=== PATIENT | male | born 1960 | race Caucasian/White ===

== ENCOUNTER 2021-06-06 16:08 | Emergency (ER) | payer OTHER ==
[2021-06-06] MEDS ORDERED: Sodium Chloride 0.9% 10 ML Syringe FLUSH PRN (16:26)
--- NOTE | 2021-06-06 17:27 | EDM.PDOC ---
ED HPI GENERAL MEDICAL PROBLEM - General Chief Complaint: Cardiovascular Problem Stated Complaint: DIZZY Time Seen by Provider: 06/06/21 16:16 Source of Information: Reports: Patient History Limitations: Reports: No Limitations, Other (ED vital signs reveal a temp of 97.7, pulse of 97, respiratory rate of 14, blood pressure 175/92, pulse ox 98% on room air) - History of Present Illness INITIAL COMMENTS - FREE TEXT/NARRATIVE: 61-year-old male presents the emergency department today with complaints of 4- day history of dizziness worse with position changes from lying to sitting to sitting to standing. He also does note some nausea associated when standing up. States that when he climbed into bed last night to lay down he also noted the dizziness. However this resolved after laying there for short time. He denies any recent fever, chills, vomiting, diarrhea, cough, shortness of breath, headache or ear pain. He denies any chest pain or shortness of breath associated with the dizziness. Denies any headache or ringing in his ears. States he has decreased appetite and has not eaten yet today. He states that his blood pressure has been slightly elevated over the past couple of days. He did check it at home today and it was greater than 170 systolic. States he does have a past history of smoking however quit several years ago. He states he does have a history of hypertension and does take medication for this. Recently had a checkup with his primary care provider the end of May and there were no issues at that time. His primary care provider is . - Related Data Allergies Allergy/AdvReac Type Severity Reaction Status Date / Time No Known Allergies Allergy Verified 06/06/21 16:23 Home Meds: Home Meds Meclizine [Antivert] 25 mg PO TID #15 tab 06/06/21 [Rx] Olmesartan/Hydrochlorothiazide [Olmesartan-Hctz 20-12.5 mg Tab] 1 tab PO DAILY 06/06/21 [History] Past Medical History HEENT History: Reports: Impaired Vision Cardiovascular History: Reports: High Cholesterol, Hypertension Endocrine/Metabolic History: Reports: Hypothyroidism - Infectious Disease History Infectious Disease History: Reports: Novel Coronavirus Other Infectious Disease History: april 2020 Social & Family History - Family History Family Medical History: No Pertinent Family History - Tobacco Use Tobacco Use Status *Q: Never Tobacco User - Caffeine Use Caffeine Use: Reports: Coffee, Energy Drinks Caffeine Use Comment: occasional energy drink - Recreational Drug Use Recreational Drug Use: No ED ROS GENERAL - Review of Systems Review Of Systems: Comprehensive ROS is negative, except as noted in HPI. ED EXAM, GENERAL - Physical Exam Exam: See Below Exam Limited By: No Limitations General Appearance: Alert, WD/WN, No Apparent Distress Eye Exam: Bilateral Eye: EOMI, PERRL Ears: Normal External Exam, Normal Canal, Hearing Grossly Normal. No: Normal TMs (Right tympanic membrane is erythematous; left tympanic membrane has fluid noted) Ear Exam: Bilateral Ear: Auricle Normal, Canal Normal, Other (See above) Nose: Normal Inspection, Normal Mucosa Throat/Mouth: Normal Inspection, Normal Lips, Normal Voice, No Airway Compromise Head: Atraumatic, Normocephalic Neck: Normal Inspection, Supple Respiratory/Chest: No Respiratory Distress, Lungs Clear, Normal Breath Sounds, No Accessory Muscle Use, Chest Non-Tender Cardiovascular: Normal Peripheral Pulses, Regular Rate, Rhythm, No Edema, No Murmur Peripheral Pulses: 2+: Radial (L), Radial (R) GI/Abdominal: Normal Bowel Sounds, Soft, Non-Tender, No Distention (Male) Exam: Deferred Rectal (Males) Exam: Deferred Back Exam: Normal Inspection, Full Range of Motion Extremities: Normal Inspection, Normal Range of Motion, Non-Tender, No Pedal Edema, Normal Capillary Refill Neurological: Alert, Oriented, CN II-XII Intact, Normal Cognition, Normal Gait Psychiatric: Normal Affect, Normal Mood Skin Exam: Warm, Dry, Intact, Normal Color, No Rash Lymphatic: No Adenopathy #1 Interpretation EKG Date: 06/06/21 Time: 17:32 Rhythm: NSR Rate (Beats/Min): 85 [place]: Normal P-Wave: Present QRS: Normal ST-T: Normal QT: Normal EKG Interpretation Comments: Per Dr. Dyer interpretation: Sinus rhythm at 85 bpm; nonspecific intraventricular conduction delay; probable anteroseptal infarct, old; borderline T abnormalities, inferior leads; Q's anterior Course - Vital Signs Text/Narrative:: Stated above, patient presents with 4-day history of dizziness primarily noted with position changes. Physical exam reveals an alert non-ill appearing male laying in bed. Heart and lungs are unremarkable. Abdomen is soft and nontender. Neuro exam is completely unremarkable. Patient does have erythema noted to the right tympanic membrane however I do not appreciate any edema. He does have fluid noted in the left tympanic membrane. When laying flat, patient states there is no change in his dizziness. He denies any changes to his dizziness when turning his head to the right or the left. I do not appreciate any nystagmus. Patient notes increased dizziness when going from lying to sitting. We will have nursing staff perform orthostatic vital signs. Also obtain a CT scan of the head rule out stroke. We will get lab studies to include a CBC, CMP, magnesium, C-reactive protein, D-dimer, and troponin level. We will also obtain testing for Covid and influenza. Last Recorded V/S: Last Vital Signs Temp 97.7 F 06/06/21 16:17 Pulse 97 06/06/21 16:17 Resp 14 06/06/21 16:17 BP 175/92 H 06/06/21 16:17 Pulse Ox 98 06/06/21 16:17 Orthostatic Blood Pressure [ 152/90 Standing] Orthostatic Blood Pressure [ 142/88 Supine] - Orders/Labs/Meds Orders: Active Orders 24 hr Category Date Time Status Orthostatic Vital Signs [RC] ASDIRECTED Care 06/06/21 16:53 Active Chest 1V Frontal [CR] Stat Exams 06/06/21 16:26 Taken Head wo Cont [CT] Stat Exams 06/06/21 17:13 Taken Sodium Chloride 0.9% [Saline Flush] Med 06/06/21 16:26 Active 10 ml FLUSH ASDIRECTED PRN Saline Lock Insert [OM.PC] Stat Oth 06/06/21 16:26 Ordered Medication Orders Sodium Chloride (Sodium Chloride 0.9% 10 Ml Syringe) 10 ml FLUSH ASDIRECTED PRN PRN Reason: Keep Vein Open Last Admin: 06/06/21 17:00 Dose: 10 ml Documented by: MOLLY Labs: Laboratory Tests 06/06/21 06/06/21 06/06/21 Range/Units 16:10 16:10 16:10 WBC 11.82 H (4.23-9.07) K/mm3 RBC 5.22 (4.63-6.08) M/mm3 Hgb 16.0 (13.7-17.5) gm/dl Hct 46.3 (40.1-51.0) % MCV 88.7 (79.0-92.2) fl MCH 30.7 (25.7-32.2) pg MCHC 34.6 (32.2-35.5) g/dl RDW Std Deviation 43.1 (35.1-43.9) fL Plt Count 254 (163-337) K/mm3 MPV 10.2 (9.4-12.3) fl Neut % (Auto) 81.0 H (34.0-67.9) % Lymph % (Auto) 14.5 L (21.8-53.1) % Harris % (Auto) 3.5 L (5.3-12.2) % Eos % (Auto) 0.5 L (0.8-7.0) Baso % (Auto) 0.4 (0.1-1.2) % Neut # (Auto) 9.58 H (1.78-5.38) K/mm3 Lymph # (Auto) 1.71 (1.32-3.57) K/mm3 Harris # (Auto) 0.41 (0.30-0.82) K/mm3 Eos # (Auto) 0.06 (0.04-0.54) K/mm3 Baso # (Auto) 0.05 (0.01-0.08) K/mm3 D-Dimer, Quantitative 0.37 (0.19-0.50) mg/L Sodium (136-145) mEq/L Potassium (3.5-5.1) mEq/L Chloride (98-107) mEq/L Carbon Dioxide (21-32) mEq/L Anion Gap (5-15) BUN (7-18) mg/dL Creatinine (0.7-1.3) mg/dL Est Cr Clr Drug Dosing mL/min Estimated GFR (MDRD) (>60) mL/min BUN/Creatinine Ratio (14-18) Glucose (70-99) mg/dL Calcium (8.5-10.1) mg/dL Magnesium (1.8-2.4) mg/dL Total Bilirubin (0.2-1.0) mg/dL AST (15-37) U/L ALT (16-63) U/L Alkaline Phosphatase (46-116) U/L Troponin I (0.00-0.056) ng/mL C-Reactive Protein (<1.0) mg/dL Total Protein (6.4-8.2) g/dl Albumin (3.4-5.0) g/dl Globulin gm/dL Albumin/Globulin Ratio (1-2) Urine Color (Yellow) Urine Appearance (Clear) Urine pH (5.0-8.0) Ur Specific [place] (1.005-1.030) Urine Protein (Negative) Urine Glucose (UA) (Negative) Urine Ketones (Negative) Urine Occult Blood (Negative) Urine Nitrite (Negative) Urine Bilirubin (Negative) Urine Urobilinogen (0.2-1.0) Ur Leukocyte Esterase (Negative) Influenza Type A RNA Negative (NEGATIVE) Influenza Type B RNA Negative (NEGATIVE) SARS-CoV-2 RNA (BALDEMAR) Negative (NEGATIVE) 06/06/21 06/06/21 Range/Units 16:10 18:16 WBC (4.23-9.07) K/mm3 RBC (4.63-6.08) M/mm3 Hgb (13.7-17.5) gm/dl Hct (40.1-51.0) % MCV (79.0-92.2) fl MCH (25.7-32.2) pg MCHC (32.2-35.5) g/dl RDW Std Deviation (35.1-43.9) fL Plt Count (163-337) K/mm3 MPV (9.4-12.3) fl Neut % (Auto) (34.0-67.9) % Lymph % (Auto) (21.8-53.1) % Harris % (Auto) (5.3-12.2) % Eos % (Auto) (0.8-7.0) Baso % (Auto) (0.1-1.2) % Neut # (Auto) (1.78-5.38) K/mm3 Lymph # (Auto) (1.32-3.57) K/mm3 Harris # (Auto) (0.30-0.82) K/mm3 Eos # (Auto) (0.04-0.54) K/mm3 Baso # (Auto) (0.01-0.08) K/mm3 D-Dimer, Quantitative (0.19-0.50) mg/L Sodium 141 (136-145) mEq/L Potassium 3.6 (3.5-5.1) mEq/L Chloride 103 (98-107) mEq/L Carbon Dioxide 25 (21-32) mEq/L Anion Gap 16.6 H (5-15) BUN 14 (7-18) mg/dL Creatinine 1.0 (0.7-1.3) mg/dL Est Cr Clr Drug Dosing 81.11 mL/min Estimated GFR (MDRD) > 60 (>60) mL/min BUN/Creatinine Ratio 14.0 (14-18) Glucose 174 H (70-99) mg/dL Calcium 9.3 (8.5-10.1) mg/dL Magnesium 2.8 H (1.8-2.4) mg/dL Total Bilirubin 1.4 H (0.2-1.0) mg/dL AST 36 (15-37) U/L ALT 103 H (16-63) U/L Alkaline Phosphatase 106 (46-116) U/L Troponin I < 0.017 (0.00-0.056) ng/mL C-Reactive Protein <0.2 (<1.0) mg/dL Total Protein 8.2 (6.4-8.2) g/dl Albumin 4.5 (3.4-5.0) g/dl Globulin 3.7 gm/dL Albumin/Globulin Ratio 1.2 (1-2) Urine Color Light yellow (Yellow) Urine Appearance Clear (Clear) Urine pH 6.5 (5.0-8.0) Ur Specific [place] 1.020 (1.005-1.030) Urine Protein Negative (Negative) Urine Glucose (UA) Negative (Negative) Urine Ketones Negative (Negative) Urine Occult Blood Negative (Negative) Urine Nitrite Negative (Negative) Urine Bilirubin Negative (Negative) Urine Urobilinogen 0.2 (0.2-1.0) Ur Leukocyte Esterase Negative (Negative) Influenza Type A RNA (NEGATIVE) Influenza Type B RNA (NEGATIVE) SARS-CoV-2 RNA (BALDEMAR) (NEGATIVE) Meds: Medications Generic Name Dose Route Start Last Admin Trade Name Freq PRN Reason Stop Dose Admin Sodium Chloride 10 ml 06/06/21 16:26 06/06/21 17:00 Sodium Chloride 0.9% 10 Ml Syringe FLUSH 10 ml ASDIRECTED PRN Administration Keep Vein Open Discontinued Medications Generic Name Dose Route Start Last Admin Trade Name Freq PRN Reason Stop Dose Admin Lorazepam 0.5 mg 06/06/21 18:30 06/06/21 18:39 Lorazepam 2 Mg/Ml Sdv IVPUSH 06/06/21 18:31 0.5 mg ONETIME ONE Administration Metoclopramide HCl 7.5 mg 06/06/21 18:30 06/06/21 18:40 Metoclopramide 10 Mg/2 Ml Sdv IVPUSH 06/06/21 18:31 7.5 mg ONETIME ONE Administration - Re-Assessments/Exams Free Text/Narrative Re-Assessment/Exam: 06/06/21 17:54 V rad radiologist impression chest x-ray; no acute findings. 06/06/21 18:[address] of the head without contrast: No acute intracranial abnormality. 06/06/21 18:32 Hematology reveals a WBC of 11.82, hemoglobin 16.0, hematocrit 46.3, platelet count 254 Coagulation reveals a D-dimer of 0.37 Chemistry reveals a sodium of 141, potassium 3.6, anion gap 16.6, BUN 14, creatinine 1.0, GFR greater than 60, glucose 174, magnesium 2.8, total bilirubin 1.4, AST 36, ALT 103, troponin less than 0.017, C-reactive protein less than 0.2 Serology reveals influenza a and B are negative and Covid test is negative Suspect the patient has acute positional vertigo. Will medicate him with Reglan 7.5 mg IV and Ativan 0.5 mg IV. 06/06/21 19:27 Patient states that dizziness is significantly better however not completely resolved. He did ambulate in the hallway without difficulty. He will be discharged home with a prescription for meclizine 25 mg to be taken 3 times daily x5 days. Departure - Departure Time of Disposition: 19:27 Disposition: Home, Self-Care 01 Condition: Good Clinical Impression: Vertigo Prescriptions: Meclizine [Antivert] 25 mg PO TID #15 tab Referrals: Yvan Alberts MD [Primary Care Provider] - Forms: ED Department Discharge Additional Instructions: You were seen in the emergency department today with complaints of dizziness. Numerous studies were completed to include labs, and CT studies. Labs were essentially unremarkable as there is no sign or symptom of infection. No sign of any damage related to your heart. Blood pressure did come down while you are in the emergency department. CT scan of the head was completed to rule out stroke due to the complaint of dizziness. This was negative. As discussed you do have some fluid noted in the left ear and right ear is red however I do not appreciate infection or need to start antibiotic treatment at this time to the fact that you have not had fever or pain. You did receive medications to treat vertigo while in the emergency department and this did seem to help somewhat. I have sent prescription to your pharmacy for a medication called meclizine. You will need to take 1 tab 3 times daily for the next 5 days to completely abort the vertigo symptoms. Also recommend taking Sudafed per label instructions to dry up the fluid noted in your left ear. Suspect that this will likely help with the symptoms of dizziness as well. Be aware, as discussed, that this medication can cause difficulty with urination and if it does I would stop it immediately. Recommend follow-up with Dr. Espinal in about 10 days time for reevaluation. Sepsis Event Note (ED) - Evaluation Sepsis Screening Result: No Definite Risk - Focused Exam Vital Signs: Vital Signs Temp Pulse Resp BP Pulse Ox 06/06/21 16:17 97.7 F 97 14 175/92 H 98 - My Orders Last 24 Hours: My Active Orders 06/06/21 16:26 Chest 1V Frontal [CR] Stat Sodium Chloride 0.9% [Saline Flush] 10 ml FLUSH ASDIRECTED PRN Saline Lock Insert [OM.PC] Stat 06/06/21 16:53 Orthostatic Vital Signs [RC] ASDIRECTED 06/06/21 17:13 Head wo Cont [CT] Stat - Assessment/Plan Last 24 Hours: My Active Orders 06/06/21 16:26 Chest 1V Frontal [CR] Stat Sodium Chloride 0.9% [Saline Flush] 10 ml FLUSH ASDIRECTED PRN Saline Lock Insert [OM.PC] Stat 06/06/21 16:53 Orthostatic Vital Signs [RC] ASDIRECTED 06/06/21 17:13 Head wo Cont [CT] Stat
[2021-06-06 17:47] LABS: CORONAVIRUS COVID-19 NAA NEGATIVE (NEGATIVE)
[2021-06-06] MEDS ORDERED: Metoclopramide 10 MG/2 ML SDV IVPUSH ONE (18:30)
[2021-06-06] MEDS ORDERED: LORazepam 2 MG/ML SDV IVPUSH ONE (18:30)
--- NOTE | 2021-06-08 14:04 | CR ---
EXAM: XR CHEST 1 VIEW LOCATION: [facility] DATE/TIME: 06/06/2021 4:28 PM INDICATION: Dizziness COMPARISON: None. IMPRESSION: Negative chest. SIGNED BY: Cuong Quezada MD 06/08/2021 12:48 PM [facility]
--- NOTE | 2021-06-08 14:07 | CT ---
EXAM: CT HEAD W/O LOCATION: [facility] DATE/TIME: 06/06/2021 5:45 PM INDICATION: New onset dizziness, hypertension COMPARISON: None. TECHNIQUE: Routine CT Head without IV contrast. Multiplanar reformats. Dose reduction techniques were used. FINDINGS: INTRACRANIAL CONTENTS: No intracranial hemorrhage, extraaxial collection, or mass effect. No CT evidence of acute infarct. Few small foci of chronic infarction in the lateral mid aspect of the right frontal lobe, within the right middle cerebral artery anterior division territory. Normal ventricles and sulci. VISUALIZED ORBITS/SINUSES/MASTOIDS: No intraorbital abnormality. No paranasal sinus mucosal disease. No middle ear or mastoid effusion. BONES/SOFT TISSUES: No acute abnormality. IMPRESSION: 1. No acute intracranial process. 2. 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 SIGNED BY: Kleber Gomes MD 06/08/2021 2:26 PM [facility]
== END 2021-06-06 19:42 | disposition home or self-care (01) ==
LOC: JD.ED 16:08
DX: R42 Dizziness and giddiness (principal); I10 Essential (primary) hypertension; Z20.822 Contact with and (suspected) exposure to COVID-19
CPT/HCPCS: 0240U; 36415; 70450; 71045; 80053; 81003; 83735; 84484; 85025; 85379; 86140; 93005; 96374; 96375; 99284; J2060; J2765

== ENCOUNTER 2024-04-09 19:44 | Emergency (ER) | payer BC, OTHER ==
[2024-04-09] MEDS ORDERED: Sodium Chloride 0.9% 10 ML Syringe FLUSH PRN (20:02)
[2024-04-09 20:26] LABS: BASOPHILS ABSOLUTE AUTO 0.1 K/mm3 (0.0-0.2); BASOPHILS PERCENT AUTO 0.5 % (0.0-1.0); EOSINOPHILS ABSOLUTE AUTO 0.2 K/mm3 (0.0-0.4); EOSINOPHILS PERCENT AUTO 1.6 % (0.0-6.0); HEMOGLOBIN 15.7 gm/dl (14.0-18.0); IMMATURE GRAN ABSOLUTE AUTO 0.05 K/mm3 (0.00-0.05); IMMATURE GRAN PERCENT AUTO 0.5 % (0.0-0.4); LYMPHOCYTES ABSOLUTE AUTO 1.6 K/mm3 (1.0-4.8); LYMPHOCYTES PERCENT AUTO 14.3 % (24.0-44.0); MEAN CORPUSCULAR HEMOGLOBIN 30.1 pg (28.0-32.0); MEAN CORPUSCULAR HGB CONC 34.9 g/dl (32.0-36.0); MEAN CORPUSCULAR VOLUME 86.4 fl (83.0-99.0); MEAN PLATELET VOLUME 9.9 fl (9.4-12.4); MONOCYTES ABSOLUTE AUTO 0.5 K/mm3 (0.0-0.8); MONOCYTES PERCENT AUTO 4.7 % (0.0-8.0); NEUTROPHILS ABSOLUTE AUTO 8.6 K/mm3 (1.8-7.7); NEUTROPHILS PERCENT AUTO 78.4 % (41.0-71.0); PLATELET COUNT,PLT 238 K/mm3 (150-400); RED BLOOD CELL COUNT 5.21 M/mm3 (4.52-5.90); WHITE BLOOD CELL COUNT,WBC 10.96 K/mm3 (3.9-11.3)
[2024-04-09] MEDS: Sodium Chloride 0.9% 1,000 ML IV SCH (20:39)
[2024-04-09] MEDS: Ondansetron 4 MG/2 ML SDV IVPUSH ONE (20:40)
[2024-04-09 20:51] LABS: A/G RATIO 1.2 (1-2); ALBUMIN 4.2 g/dl (3.4-5.0); ANION GAP 15.4 (5-15); BILIRUBIN TOTAL 1.7 mg/dL (0.2-1.0); BUN/CREATININE RATIO 13.3 (14-18); CALCIUM 9.3 mg/dL (8.5-10.1); CREATININE 0.9 mg/dL (0.7-1.3); EST CRCL DRUG DOSING (CG) 82.33 mL/min; POTASSIUM,K 3.4 mEq/L (3.5-5.1); PROTEIN TOTAL,TP 7.7 g/dl (6.4-8.2)
[2024-04-09] MEDS: Acetaminophen 325 MG Tab PO ONE (21:01)
[2024-04-09] MEDS: Meclizine 25 MG Tab PO ONE (21:01)
== END 2024-04-09 21:32 | disposition home or self-care (01) ==
LOC: JD.ED 19:44
DX: R42 Dizziness and giddiness (principal); I10 Essential (primary) hypertension; E78.00 Pure hypercholesterolemia, unspecified; E03.9 Hypothyroidism, unspecified; Z79.84 Long term (current) use of oral hypoglycemic drugs; Z79.899 Other long term (current) drug therapy; Z86.16 Personal history of COVID-19
CPT/HCPCS: 36415; 70450; 80053; 84484; 85025; 93005; 96361; 96374; 99284; A9270; J2405; J7030